=== PATIENT | female | born 1990 | race African-American/Black ===

== ENCOUNTER 2016-12-05 17:56 | Emergency (ER) | payer OTHER ==
[~2016-12-05] VITALS: Ht 162.6 cm; Wt 127.0 kg
[~2016-12-05 17:56] MED LIST: ADVIL100 M2; BACTRIM DS TAB1 EACH PO; IBUPROFEN 800800 MG PO; KEFLEX500 MG PO; MULTIVITAMINS1 EAC7 PO; NORCO 5-325 TA1 EACH PO; TRINESSA1 EACH; VITAMIN D3400 UNIT PO; ZPAK PO
[2016-12-05 18:02] VITALS: BP 129/76
[2016-12-05 18:20] LABS: URINE BILIRUBIN NEGATIVE (Negative); URINE BLOOD NEGATIVE (Negative); URINE COLOR YELLOW; URINE GLUCOSE-RANDOM* NEGATIVE (Negative); URINE KETONES NEGATIVE (Negative); URINE NITRITE NEGATIVE (Negative); URINE PROTEIN (DIPSTICK) NEGATIVE (Negative); URINE SPECIFIC GRAVITY <= 1.005 (1.003-1.035); URINE UROBILINOGEN 0.2 E.U./dl (0.2-1.0)
[2016-12-06 19:09] LABS: CHLAMYDIA TRACHOMATIS-PCR Negative (Negative); NEISSERIA GONORRHEA-PCR Negative (Negative)
== END 2016-12-05 19:42 | disposition home or self-care (01) ==
LOC: ER 17:56
PROVIDERS: Physician Assistant
DX: N89.8 Other specified noninflammatory disorders of vagina (principal)

== ENCOUNTER 2017-06-23 20:17 | Emergency (ER) | payer OTHER ==
[~2017-06-23] VITALS: Ht 165.1 cm; Wt 127.0 kg
[2017-06-23 20:19] VITALS: BP 141/82
[2017-06-25 14:10] LABS: CHLAMYDIA TRACHOMATIS-PCR Positive (Negative); NEISSERIA GONORRHEA-PCR Negative (Negative)
== END 2017-06-23 21:11 | disposition home or self-care (01) ==
LOC: ER 20:17
PROVIDERS: Nurse Practitioner Family
DX: T19.2XXA Foreign body in vulva and vagina, initial encounter (principal); X58.XXXA Exposure to other specified factors, initial encounter; Y93.89 Activity, other specified; Y92.89 Other specified places as the place of occurrence of the external cause; Y99.8 Other external cause status

== ENCOUNTER → 2017-08-17 | Emergency (ER) | payer OTHER ==
[~2017-08-17] VITALS: Ht 167.6 cm; Wt 127.0 kg
[2017-08-17 23:38] LABS: URINE BILIRUBIN NEGATIVE (Negative); URINE BLOOD TRACE (Negative); URINE CLARITY CLEAR; URINE COLOR YELLOW; URINE GLUCOSE-RANDOM* NEGATIVE (Negative); URINE KETONES NEGATIVE (Negative); URINE NITRITE-REFLEX NEGATIVE (Negative); URINE PROTEIN (DIPSTICK) NEGATIVE (Negative); URINE SPECIFIC GRAVITY 1.025 (1.005-1.035); URINE UROBILINOGEN 0.2 E.U./dl (0.2-1.0)
[2017-08-17 23:40] LABS: URINE LEUKOCYTES-REFLEX TRACE (Negative)
== END ==
LOC: ER 22:08
PROVIDERS: Emergency Medicine
DX: Z53.21 Procedure and treatment not carried out due to patient leaving prior to being seen by health care provider (principal)

== ENCOUNTER 2019-01-11 02:41 | Emergency (ER) | payer OTHER ==
[~2019-01-11] VITALS: Ht 160 cm; Wt 131.5 kg
[2019-01-11 03:19] LABS: ABSOLUTE NEUTROPHILS 5.8 thou/uL (1.4-8.2); BASOPHILS 0.4 % (0.0-2.0); EOSINOPHILS 0.1 % (0.0-3.0); HEMATOCRIT 37.7 % (37.0-47.0); LYMPHOCYTES 19.5 % (24.0-44.0); MCH 27.2 pg (26.0-34.0); MCHC 31.8 g/dL (28.0-37.0); MCV 85.4 fL (80.0-100.0); MONOCYTES 0.8 % (1.0-8.0); PLATELET COUNT 315 thou/uL (150-400); POLYS 79.2 % (36.0-66.0); RBC 4.41 mil/uL (4.20-5.00); WBC 7.3 thou/uL (4.0-11.0)
[2019-01-11 03:29] LABS: CALCIUM 8.9 mg/dL (8.5-10.1); CREATININE 0.9 mg/dL (0.6-1.0); POTASSIUM 3.1 mmol/L (3.5-5.1)
[2019-01-11 03:34] LABS: ALBUMIN 3.6 g/dL (3.4-5.0); TOTAL BILIRUBIN 0.2 mg/dL (<0.1-1.0); TOTAL PROTEIN 8.2 g/dL (6.4-8.2)
[2019-01-11 05:25] LABS: URINE BILIRUBIN NEGATIVE (Negative); URINE BLOOD NEGATIVE (Negative); URINE CLARITY SL CLOUDY; URINE COLOR YELLOW; URINE GLUCOSE-RANDOM* NEGATIVE (Negative); URINE KETONES NEGATIVE (Negative); URINE LEUKOCYTES-REFLEX NEGATIVE (Negative); URINE NITRITE-REFLEX NEGATIVE (Negative); URINE PROTEIN (DIPSTICK) NEGATIVE (Negative); URINE UROBILINOGEN 0.2 E.U./dl (0.2-1.0)
[2019-01-11] MEDS ORDERED: ZOFRAN ODT4 MG PO (05:55)
[2019-01-11] MEDS ORDERED: BENTYL 20 MG TA20 M1 PO (05:55)
[2019-01-11 06:10] VITALS: BP 121/71
== END 2019-01-11 06:17 | disposition home or self-care (01) ==
LOC: ER 02:41
PROVIDERS: Emergency Medicine
DX: K52.9 Noninfective gastroenteritis and colitis, unspecified (principal)